=== PATIENT | female | born 1990 | race Asian ===

== ENCOUNTER 2016-12-31 20:18 | Emergency (ER) | payer SELFPAY ==
[~2016-12-31] VITALS: Ht 167.6 cm; Wt 54.4 kg
[2016-12-31 20:42] VITALS: BP 113/77
[2016-12-31] MEDS ORDERED: NKM (20:42)
--- NOTE | 2016-12-31 21:03 | Emergency Room Report ---
History of Present Illness General Chief Complaint: Abdominal Pain Source: Patient Present Illness HPI Is a 26-year-old female with no medical problem. She presents with epigastric and mid abdominal pain for the last 2 days. No nausea no vomiting. No dysuria frequency. Noted some bright red blood in her stool. No other complaint. She try Nexium without any relief. Patient thought this was a family center that with the "in and out." Because she has no insurance, she was worried about the bill. She decided that she went to leave. Patient is competent and able to make that decision. I explained to the patient that there is no way of knowing what she may have without doing further testing. This may be benign I can ulcer or gastritis versus and acute abdomen or appendicitis. Patient changed her mind she is welcome to come back. Allergies: Coded Allergies: SULFA (SULFONAMIDE ANTIBIOTICS) (Verified Allergy, Unknown, 12/31/16) Patient History Past Medical History: none Past Surgical History: none Pertinent Family History: none Social History: Denies: smoking Last Menstrual Period: 3 weeks ago Now: No Immunizations: other Reviewed Nursing Documentation: PMH: Agreed, PSxH: Agreed Nursing Documentation-PMH Past Medical History: No Stated History Physical Exam Vital Signs Date Time Temp Pulse Resp B/P Pulse Ox O2 Delivery O2 Flow Rate FiO2 12/31/16 20:32 98.2 88 16 113/77 100 Room Air Medical Decision Making Diagnostic Impression: Primary Impression: Abdominal pain Qualified Codes: R10.84 - Generalized abdominal pain ER Course Patient came in with abdominal pain. I was able to take a history but did not do any physical exam any laboratory data. Patient will be signed out AGAINST MEDICAL ADVICE. Last Vital Signs Date Time Temp Pulse Resp B/P Pulse Ox O2 Delivery O2 Flow Rate FiO2 12/31/16 20:32 98.2 88 16 113/77 100 Room Air Status: unchanged Disposition: AGAINST MEDICAL ADVICE Condition: Stable KEVIN LUKE M.D. Dec 31, 2016 21:03
[2016-12-31 21:04] VITALS: BP 113/77
== END 2016-12-31 21:05 | disposition left against medical advice (07) ==
LOC: EMR 21:00
DX: R10.13 Epigastric pain (principal); Z88.2 Allergy status to sulfonamides
CPT/HCPCS: 99282